=== PATIENT | female | born 1975 | race Caucasian/White ===

== ENCOUNTER 2018-04-03 18:42 | Emergency (ER) | payer OTHER ==
--- NOTE | 2018-04-03 18:51 | PDOC ---
History of Present Illness - General Chief Complaint: Injury Stated Complaint: LEFT LEG INJURY Time Seen by Provider: 04/03/18 18:51 - History of Present Illness Initial Comments: 04/03/18 18:52 Chief complaint: Left ankle injury History of present illness: Patient tripped and fell while getting off the train , injured her left ankle. Pain and swelling, bleeding medially, was unable to bear weight. Review of systems: Denies pain or injury to the head neck chest abdomen spine pelvis or other extremities. Denies distal numbness tingling pain or limited motion in the foot. Denies chest pain, shortness of breath, abdominal pain, nausea, vomiting, diarrhea, visual or focal neurologic symptoms, unsteadiness of gait. Past medical history: Healthy female except for occasional migraines. Took a triptan and Advil this morning for headache. Symptoms of headache have resolved. Social/family history reviewed and noncontributory Physical exam: Alert and oriented well-developed well-nourished no acute distress at rest. Afebrile, vital signs normal Left ankle: There is swelling, which is moderate, of the medial ankle, and also less so of the lateral ankle. There is a puncture wound with bleeding over the medial malleolus. There is no fifth metatarsal tenderness and no deformity or swelling of the foot. Pulses are full. No distal sensory or motor deficits. Impression: Possible ankle fracture, possible puncture wound, possible open fracture. Plan: X-ray and further orthopedic management depending on results. Past History - Past Medical History Allergies/Adverse Reactions: Allergies Allergy/AdvReac Type Severity Reaction Status Date / Time Penicillins Allergy Mild Rash Verified 04/03/18 18:44 Home Medications: Ambulatory Orders NK [No Known Home Medication] 04/03/18 Medical Decision Making - Medical Decision Making 04/06/18 07:33 Patient is awaiting x-ray. Signed out to Dr. Ingram at 7 PM pending x-ray results and further orthopedic management. *DC/Admit/Observation/Transfer Diagnosis at time of Disposition: Left ankle sprain - Discharge Dispostion Disposition: HOME Condition at time of disposition: Stable - Referrals - Patient Instructions Additional Instructions: For the pain Tylenol or Motrin as needed. Wear your Garrett wrap and use crutches as needed for ambulation until you're able to bear weight. If you need an orthopedist to follow up with call Dr. Benjamin at [phone]. Return to the emergency department immediately with ANY new, persistent or worsening symptoms. Continue any medications as previously prescribed by your physician. You should follow up with your primary doctor as soon as possible regarding today's emergency department visit. . Please make sure your doctor reviews the results of your emergency evaluation. Thank you for coming to the Emergency Department today for your care. It was a pleasure to see you today. Please note that your evaluation is INCOMPLETE until you follow-up with your doctor. - Post Discharge Activity
[2018-04-03 19:01] VITALS: BP 127/82; PULSE 95; TEMP 98.6; BMI 24.1
--- NOTE | 2018-04-03 19:12 | PDOC ---
*Physical Exam - Vital Signs Last Vital Signs Temp Pulse Resp BP Pulse Ox 98.6 F 95 H 16 127/82 100 04/03/18 18:44 04/03/18 18:44 04/03/18 18:44 04/03/18 18:44 04/03/18 18:44 Progress Note - Progress Note Progress Note: Care of this patient was transferred to [place] from Dr. Pham at 7 PM This is a 43-year-old female who injured her ankle. Patient has x-ray pending of the ankle. There is a question as to whether or not this may be an open fracture given the fact that there appears to be a open wound over the fracture. X-ray: No acute fracture dislocation however there is evidence of an old well- healed fracture of the lateral malleolus. Puncture wound cleaned and some Surgicel and a pressure dressing was applied over the wound. Patient's tetanus status is unknown at this point so tetanus was updated. Patient discharged home given a referral to an orthopedist. Patient given crutches and her wound was dressed and an Garrett wrap was applied. *DC/Admit/Observation/Transfer Diagnosis at time of Disposition: Left ankle sprain Qualifiers: Encounter type: initial encounter Involved ligament of ankle: unspecified ligament Qualified Code(s): S93.402A - Sprain of unspecified ligament of left ankle, initial encounter - Discharge Dispostion Disposition: HOME Decision to Admit order: No - Referrals - Patient Instructions Additional Instructions: For the pain Tylenol or Motrin as needed. Wear your Garrett wrap and use crutches as needed for ambulation until you're able to bear weight. If you need an orthopedist to follow up with call Dr. Benjamin at [phone]. Return to the emergency department immediately with ANY new, persistent or worsening symptoms. Continue any medications as previously prescribed by your physician. You should follow up with your primary doctor as soon as possible regarding today's emergency department visit. . Please make sure your doctor reviews the results of your emergency evaluation. Thank you for coming to the Emergency Department today for your care. It was a pleasure to see you today. Please note that your evaluation is INCOMPLETE until you follow-up with your doctor. - Post Discharge Activity
[2018-04-03] MEDS ORDERED: DIPHTH,PERTUSS(ACELL),TET 0.5 ML DISP.SYRIN IM ONE (19:35)
== END 2018-04-03 20:13 | disposition home or self-care (01) ==
LOC: FER 18:42
PROC: 3E0234Z Introduction of Serum, Toxoid and Vaccine into Muscle, Percutaneous Approach (ICD-10-PCS; principal; 2018-04-03)
PROC: 0HQNXZZ Repair Left Foot Skin, External Approach (ICD-10-PCS; 2018-04-03)
DX: S91.032A Puncture wound without foreign body, left ankle, initial encounter (principal); S93.402A Sprain of unspecified ligament of left ankle, initial encounter; W01.0XXA Fall on same level from slipping, tripping and stumbling without subsequent striking against object, initial encounter; Y93.89 Activity, other specified; Y92.410 Unspecified street and highway as the place of occurrence of the external cause
CPT/HCPCS: 73610-TC-LT-FY; 90715; 99283-25

== ENCOUNTER 2018-04-10 07:31 | Day surgery (SDC) | payer OTHER ==
[2018-04-09 18:30] VITALS: BMI 23.4
--- NOTE | 2018-04-10 08:22 | HP ---
[facility] - Chief Complaint Chief Complaint: left ankle pain - Past Medical History Allergies/Adverse Reactions: Allergies Allergy/AdvReac Type Severity Reaction Status Date / Time Penicillins Allergy Mild Rash Verified 04/09/18 18:30 ...LMP: 03/27/18 - Current Medications Current Medications: Home Medications Medication Instructions Recorded Ibuprofen [Motrin -] 400 mg PO PRN 04/10/18 Magnesium 200 mg PO DAILY 04/10/18 Oxycodone HCl/Acetaminophen 1 tab PO Q6H #30 tablet MDD 4 04/10/18 [Percocet 5-325 mg Tablet] Vitamin E 400 unit PO DAILY 04/10/18 [facility] Physical Exam - Physical Examination General Appearance: Well Nourished, Well Developed, Alert & Oriented x3 ENT: Clear Lung: Normal air movement Heart: Regular rate & rhythm Extremities: Other (left ankle- + swelling, + ecchymosis, + ttp, decr rom, nvi xrays show widened mortise with proximal fibula fx) Neurological: Intact, Alert, Oriented [facility] Impression/Plan - Impression/Plan Impression: left ankle syndesmosis rupture, proximal fibula fx (Willam) Operative Procedure: left ankle syndesmosis repair Date to be Performed: 04/10/18
[2018-04-10] MEDS ORDERED: ONDANSETRON 4 MG/2 ML VIAL IVPUSH PRN (10:32)
[2018-04-10] MEDS ORDERED: oxyCODONE HCL 5 MG TABLET PO PRN ×2 (10:32)
[2018-04-10] MEDS ORDERED: LACTATED RINGERS SOLUTION 1,000 ML IV SCH (10:45)
[2018-04-10] MEDS ORDERED: DEXAMETHASONE SOD PHOSPHATE/PF 10 MG/ML SDV ONE (11:00)
[2018-04-10] MEDS ORDERED: BUPIVACAINE HCL/PF 0.5% (5MG/ML) 10 ML VIAL ONE (11:00)
[2018-04-10] MEDS ORDERED: MIDAZOLAM HCL 2 MG/2 ML SINGLE DOSE VIAL ONE ×2 (11:01)
[2018-04-10] MEDS ORDERED: PROPOFOL 20 ML ONE (12:22)
[2018-04-10] MEDS ORDERED: ATROPINE SO4 0.4 MG/1 ML VIAL ONE (12:25)
[2018-04-10] MEDS ORDERED: LIDOCAINE HCL/PF 2% SDV 5ML VIAL ONE (12:25)
[2018-04-10] MEDS ORDERED: ceFAZolin SODIUM 1 GM VIAL IVPB ONE (13:00)
[2018-04-10] MEDS ORDERED: DEXAMETHASONE SOD PHOSPHATE 4 MG/1 ML VIAL ONE (13:16)
[2018-04-10] MEDS ORDERED: ceFAZolin SODIUM 1 GM VIAL ONE (13:16)
[2018-04-10] MEDS ORDERED: KETOROLAC TROMETHAMINE 30 MG/1 ML VIAL ONE (13:25)
--- NOTE | 2018-04-10 13:37 | OP ---
Operative Note - Note: Operative Date: 04/10/18 ([facility]) Pre-Operative Diagnosis: left maisonneuve fracture Operation: left ankle syndesmosis repair Implants: 2 syndesmosis tight ropes (arthrex) Post-Operative Diagnosis: Same as Pre-op Surgeon: Jona Benjamin Outside Repairer Special: Mickey Chappell Anesthesiologist/COMPETENCY EVALUATED NURSE AIDE: Melody Larios Anesthesia: General, Local Estimated Blood Loss (mls): 5 Operative Report Dictated: Yes
[2018-04-10 17:21] VITALS: BP 111/59; PULSE 71; TEMP 98.4
--- NOTE | 2018-04-10 23:11 | OP ---
DATE OF OPERATION: 04/10/2018 PREOPERATIVE DIAGNOSIS: Left Maisonneuve fracture. POSTOPERATIVE DIAGNOSIS: Left Maisonneuve fracture. PROCEDURE: Open reduction internal fixation left Maisonneuve fracture. SURGEON ATTENDING: Jona Benjamin M.D. ANESTHESIA: Regional and general. CLOSURE: Two syndesmosis Tightropes and 3-0 nylon. COMPLICATIONS: None. CONDITION: To recovery room in stable condition. DESCRIPTION OF PROCEDURE: The patient was taken to the operating room on April 10, 2018. General anesthesia and regional anesthesia was administered by the anesthesiologist. IV Kefzol was administered prophylactically prior to the case. The left lower extremity was prepped and draped in the usual sterile fashion. The ankle was held in a neutral and internal rotation position reducing the syndesmosis, and this was confirmed by the fluoroscopy that the mortice was intact and the syndesmosis was narrowed. Two stab incisions made over the lateral aspect of the fibula. Guidewires were drilled in a divergent fashion. Apical cortices were then drilled, then the syndesmosis Tightrope was deployed to all 4 cortices. This was done again with the ankle in internal rotation and then neutral. The sutures were then cut snug. The small stab incision was closed with 3-0 nylon. X-rays to the AP, lateral, and mortice views revealed excellent position syndesmosis. Sterile pressure dressing followed by U-splint was applied. Patient awakened from anesthesia and transferred to recovery room in stable condition. No complications. Bette LIGHT/[id number]
== END 2018-04-10 16:45 | disposition home or self-care (01) ==
LOC: JASU-SURG 07:31
PROVIDERS: ATTEND Orthopaedic Surgery
PROC: 0QSK04Z Reposition Left Fibula with Internal Fixation Device, Open Approach (ICD-10-PCS; principal; 2018-04-10 12:15)
DX: S82.862A Displaced Maisonneuve's fracture of left leg, initial encounter for closed fracture (principal); X58.XXXA Exposure to other specified factors, initial encounter; Y93.9 Activity, unspecified; Y92.9 Unspecified place or not applicable; Y99.9 Unspecified external cause status
CPT/HCPCS: 27826; C1713; 76000-TC-FY; 94760